=== PATIENT | male | born 1990 | race Caucasian/White ===

== ENCOUNTER 2023-02-05 23:53 | Day surgery (SDC) | payer BC ==
[2023-02-06] MEDS ORDERED: Morphine 4 MG/ML Syringe IVPUSH ONE (00:13)
[2023-02-06] MEDS ORDERED: Sodium Chloride 0.9% 1,000 ML IV ONE ×2 (00:13→02:13)
[2023-02-06] MEDS ORDERED: Ketorolac 30 MG/ML SDV IVPUSH ONE (00:13)
[2023-02-06] MEDS ORDERED: Ondansetron 4 MG/2 ML SDV IVPUSH ONE (00:13)
[2023-02-06 00:33] LABS: BASOPHILS PERCENT AUTO 0.2 % (0.0-1.5); EOSINOPHILS PERCENT AUTO 0.3 % (0.0-7.0); HEMATOCRIT 43.9 % (38.0-50.0); HEMOGLOBIN 15.1 g/dL (13.0-17.0); LYMPHOCYTES ABSOLUTE AUTO 1.4 K/uL (0.6-2.4); MEAN CORPUSCULAR HEMOGLOBIN 26.7 pg (27.0-32.0); MEAN CORPUSCULAR HGB CONC 34.4 g/dL (31.0-37.0); MEAN CORPUSCULAR VOLUME 77.6 fL (80.0-98.0); MONOCYTES ABSOLUTE AUTO 1.1 K/uL (0.0-0.8); MONOCYTES PERCENT AUTO 8.3 % (0.0-15.0); NEUTROPHILS ABSOLUTE AUTO 11.1 K/uL (1.4-5.7); NEUTROPHILS PERCENT AUTO 81.2 % (48.0-80.0); PLATELET COUNT,PLT 200 K/uL (150-400); RED BLOOD CELL COUNT 5.66 M/uL (4.50-5.90); WHITE BLOOD CELL COUNT,WBC 13.67 K/uL (4.0-11.0)
[2023-02-06 00:58] LABS: A/G RATIO 1.3 (0.9-1.6); ALBUMIN 4.1 g/dL (3.4-5.0); BILIRUBIN TOTAL 0.6 mg/dL (0.2-1.0); CALCIUM 8.9 mg/dL (8.5-10.1); CARBON DIOXIDE,CO2 25.1 mmol/L (21.0-32.0); EST CRCL DRUG DOSING (CG) 99.15 mL/min; PROTEIN TOTAL,TP 7.3 g/dL (6.4-8.2)
[2023-02-06] MEDS ORDERED: Iopamidol 755 MG/ML 500 ML Multipack Bottle IVPUSH ONE (01:03)
[2023-02-06 01:18] LABS: APPEARANCE,URINE CLEAR; BILIRUBIN,URINE NEGATIVE (NEGATIVE); COLOR,URINE YELLOW; GLUCOSE,URINE NEGATIVE (NEGATIVE); KETONES,URINE 40 mg/dL (NEGATIVE); LEUKOCYTE ESTERASE,URINE NEGATIVE (NEGATIVE); NITRITE,URINE NEGATIVE (NEGATIVE); OCCULT BLOOD,URINE NEGATIVE (NEGATIVE); PROTEIN,URINE NEGATIVE (NEGATIVE); UROBILINOGEN,URINE 0.2 EU/dL (<2.0)
[2023-02-06] MEDS ORDERED: Piperacillin/Tazobactam 4.5 GM in Sodium Chloride 0.9% 100 ML IV ONE (02:07)
[2023-02-06] MEDS ORDERED: Morphine 2 MG/ML SYRINGE IVPUSH PRN ×2 (02:33→10:14)
[2023-02-06] MEDS ORDERED: Ropivacaine 0.5% 5 MG/ML 30 ML SDV ONE (08:05)
[2023-02-06] MEDS ORDERED: Bupivacaine 25%/EPINEPHrine/PF 30 ML ONE (08:05)
[2023-02-06] MEDS ORDERED: Sugammadex Sodium 200 MG/2 ML VIAL ONE (08:10)
[2023-02-06] MEDS ORDERED: Dexamethasone 4 MG/ML 5 ML MDV ONE (08:10)
[2023-02-06] MEDS ORDERED: Rocuronium Bromide 50 MG/5 ML Syringe ONE (08:10)
[2023-02-06] MEDS ORDERED: Ketorolac 30 MG/ML SDV ONE (08:10)
[2023-02-06] MEDS ORDERED: Ondansetron 4 MG/2 ML SDV ONE (08:10)
[2023-02-06] MEDS ORDERED: Lidocaine 2% 5 ML SDV ONE (08:10)
[2023-02-06] MEDS ORDERED: fentaNYL 100 MCG/2 ML SDV ONE (08:10)
[2023-02-06] MEDS ORDERED: Propofol 200 MG/20 ML SDV ONE (08:10)
[2023-02-06] MEDS ORDERED: Lactated Ringers 1,000 ML IV SCH ×2 (08:15→10:15)
[2023-02-06] MEDS ORDERED: Bupivacaine 0.5% 30 ML SDV ONE (08:38)
[2023-02-06] MEDS ORDERED: ceFAZolin 1 GM Vial ONE ×2 (08:38→09:38)
[2023-02-06] MEDS ORDERED: cefOXitin 1 GM Vial ONE (09:19)
[2023-02-06] MEDS ORDERED: Acetaminophen/HYDROcodone 325-5 MG Tab PO PRN ×2 (10:14→10:24)
[2023-02-06] MEDS ORDERED: cefOXitin 1 GM in Sodium Chloride 0.9% 100 ML IV SCH (14:00)
[2023-02-06 18:13] VITALS: BP 131/64; PULSE 63
== END 2023-02-06 18:00 | disposition home or self-care (01) ==
LOC: MW.ED 23:53 → MW.SDS 02-06 02:33 → MW.MS 02-06 02:34 → MW.SDS 02-06 18:00
PROVIDERS: ATTEND Surgery
DX: K35.30 Acute appendicitis with localized peritonitis, without perforation or gangrene (principal); J45.909 Unspecified asthma, uncomplicated
CPT/HCPCS: 36415; 44970; 74177; 80053; 81003; 82947; 83690; 85025; 96361; 96365; 96375; 99285; J0690; J0694; J1100; J1885; J2270; J2405; J2543; J2704; J2795; J3010; J3490; J7030; Q9967; 00840; 64488